=== PATIENT | male | born 2000 ===

== ENCOUNTER 2018-11-19 09:08 | Emergency (ER) | payer SELFPAY ==
[~2018-11-19] VITALS: Ht 172.7 cm; Wt 90.7 kg
[~2018-11-19 09:08] MED LIST: PRD20T PO
--- OUTSIDE RECORDS SUMMARY | 2018-11-19 09:57 | XMS REPORT | Continuity of Care Document ---
Author Author [facility] Organization [facility] Address Unknown Phone Unavailable Allergies Active Description Code Type Severity Reaction Onset Reported/Identified Relationship to Patient Clinical Status Yes No Known Drug Allergies [id number] Drug Allergy Unknown N/A 09/01/2015 Medications There is no data. Problems Date Dx Coded Attending Type Code Diagnosis Diagnosed By 07/29/2013 RAJOTTE TOOL CRIB CLERK, MIKEY A V05.3 HEP B (PED/ADOL 3 DOSE) DX 07/29/2013 RAJOTTE TOOL CRIB CLERK, MIKEY A V05.4 VARICELLA DX 07/29/2013 RAJOTTE TOOL CRIB CLERK, MIKEY A V06.1 TDAP DX 07/29/2013 RAJOTTE TOOL CRIB CLERK, MIKEY A V06.4 MMR DX 07/29/2013 RAJOTTE TOOL CRIB CLERK, MIKEY A V05.3 HEP B (PED/ADOL 3 DOSE) DX 07/29/2013 RAJOTTE TOOL CRIB CLERK, MIKEY A V05.4 VARICELLA DX 07/29/2013 RAJOTTE TOOL CRIB CLERK, MIKEY A V06.1 TDAP DX 07/29/2013 RAJOTTE TOOL CRIB CLERK, MIKEY A V06.4 MMR DX 07/29/2013 RAJOTTE TOOL CRIB CLERK, MIKEY A V05.3 HEP B (PED/ADOL 3 DOSE) DX 07/29/2013 RAJOTTE TOOL CRIB CLERK, MIKEY A V05.4 VARICELLA DX 07/29/2013 RAJOTTE TOOL CRIB CLERK, MIKEY A V06.1 TDAP DX 07/29/2013 RAJOTTE TOOL CRIB CLERK, MIKEY A V06.4 MMR DX 07/29/2013 RAJOTTE TOOL CRIB CLERK, MIKEY A V05.3 HEP B (PED/ADOL 3 DOSE) DX 07/29/2013 RAJOTTE TOOL CRIB CLERK, MIKEY A V05.4 VARICELLA DX 07/29/2013 RAJOTTE TOOL CRIB CLERK, MIKEY A V06.1 TDAP DX 07/29/2013 RAJOTTE TOOL CRIB CLERK, MIKEY A V06.4 MMR DX 05/10/2014 ZAYRA ROQUE MIKEY Mariee V70.3 SPORTS PHYSICAL 05/10/2014 DANIEL IVERSON APRNKETTY Mariee V70.3 SPORTS PHYSICAL 07/28/2014 DANIEL IVERSON APRNKETTY Mariee V03.89 MENINGOCOCCAL DX 09/05/2015 ALEXI CAMBPELL APRN Ot L50.9 Procedures Code [place] [address] VISUAL ACUITY SCREEN 05/10/2014 Results There is no data. Encounters ACCT No. Visit Date/Time Discharge Status Pt. Type Provider Facility Loc./Unit Complaint [id number] 09/01/2015 17:59:00 09/01/2015 18:54:00 DIS Emergency ALEXI CAMPBELL APRN [facility] [id number] 07/28/2014 14:07:00 07/28/2014 23:59:59 CLS Outpatient JOSEJAYLENEdyta MIKEY ROQUE [id number] 05/10/2014 13:00:00 05/10/2014 23:59:59 CLS Outpatient MIKEY IVERSON APRN [id number] 12/23/2013 13:45:00 12/23/2013 23:59:59 CLS Outpatient MIKEY IVERSON APRN [id number] 07/29/2013 09:46:00 07/29/2013 23:59:59 CLS Outpatient MIKEY IVERSON APRN
--- NOTE | 2018-11-19 10:01 | ED General ---
General Chief Complaint: Cough/Cold/Flu Symptoms Stated Complaint: N/V;FLU LIKE SYMPTOMS Nursing Triage Note: PT CO OF COLD COUGH AND FLU SX. STARTED YESTERDAY, HAS HAD FEVER UP TO 102. CHILD HAD FLU LAST WEEK Nursing Sepsis Screen: No Definite Risk Source of Information: Patient Exam Limitations: No Limitations (ATIF TERESA STUDENT) History of Present Illness Date Seen by Provider: Nov 19, 2018 Time Seen by Provider: 09:20 Initial Comments Mr Jernigan is a 18 year old male presenting to the ED with 24 hours of nausea, vomiting, fever, and chills. Yesterday at approximately noon he began experiencing weakness, fatigue, headache, muscle aches and chills. He measured his temperature at 102 degrees. As the day progressed he began to feel nauseous and vomited. Over the course of the night he vomited approximately eight times. He also endorses a cough producing yellow sputum, sinus pressure, and bilateral ear fullness. He chest pain or pain on inspiration. He states that his child was sick earlier in the week with similar symptoms, nausea, vomiting, and fever. Timing/Duration: 24 Hours Associated Systoms: Cough, Fever/Chills, Headaches, Loss of Appetite, Malaise, Nausea/Vomiting, Weakness (ATIF TERESA STUDENT) Allergies and Home Medications Allergies Coded Allergies: No Known Drug Allergies (Unverified , 09/01/15) Home Medications Oseltamivir Phosphate 75 Mg Cap, 75 MG PO BID Prescribed by: ADONIS GIRON on 11/19/18 1119 Prednisone 20 Mg Tab, 40 MG PO ONCE Prescribed by: ALEXI CAMPBELL on 09/01/15 1822 Patient Home Medication List Home Medication List Reviewed: Yes (ATIF TERESA MED STUDENT) Review of Systems Review of Systems Constitutional: chills, diaphoresis, fever, malaise, weakness EENTM: ear pain Respiratory: cough, phlegm Cardiovascular: no symptoms reported Gastrointestinal: No abdominal pain, No constipation, No diarrhea Genitourinary: no symptoms reported Musculoskeletal: muscle pain Skin: no symptoms reported Psychiatric/Neurological: Headache, Weakness Hematologic/Lymphatic: No Symptoms Reported Immunological/Allergic: no symptoms reported (ATIF TERESA MED STUDENT) Past Wqncqag-Uxwlmd-Oyuytt Hx Patient Social History Alcohol Use: Denies Use Recreational Drug Use: Yes (POT) Smoking Status: Never a Smoker Recent Foreign Travel: No Contact w/Someone Who Travel: No Recent Infectious Disease Expo: No Recent Hopitalizations: No (ATIF TERESA MED STUDENT) Immunizations Up To Date Tetanus Booster (TDap): Less than 5yrs PED Vaccines UTD: Yes (ATIF TERESA MED STUDENT) Seasonal Allergies Seasonal Allergies: No (ATIF TERESA MED STUDENT) Past Medical History Surgeries: No Respiratory: No Cardiac: No Neurological: No Reproductive Disorders: No Sexually Transmitted Disease: No Gastrointestinal: No Musculoskeletal: No Endocrine: No Cancer: No Psychosocial: No Integumentary: No Blood Disorders: No Adverse Reaction/Blood Tranf: No (ATIF TERESA MED STUDENT) Physical Exam Vital Signs Vital Signs - First Documented 11/19/18 09:23 Temp 99.5 Pulse 79 Resp 14 B/P (MAP) 138/90 (106) Pulse Ox 97 (ADONIS NOLAN MD) Vital Signs Capillary Refill : Less Than 3 Seconds (ATIF TERESA MED STUDENT) Height, Weight, BMI Height: 5'8.00" Weight: 200lbs. oz. 90.570088gl; BMI Method:Stated General Appearance: No Apparent Distress HEENT: TMs Normal, Moist Mucous Membranes, Pharyngeal Erythema Respiratory: Lungs Clear, Normal Breath Sounds, No Respiratory Distress Cardiovascular: Regular Rate, Rhythm, No Gallop, No Murmur Gastrointestinal: No Pulsatile Mass, Non Tender, Soft Rectal: Deferred Neurologic/Psychiatric: Alert, Oriented x3 (ATIF TERESA MED STUDENT) Progress/Results/Core Measures Suspected Sepsis Recent Fever Within 48 Hours: Yes Infection Criteria Present: None New/Unexplained Altered Menta: No Sepsis Screen: No Definite Risk SIRS Temperature:99.5 Pulse: 79 Respiratory Rate: 14 Blood Pressure 138 /90 Mean: 106 (ATIF TERESA MED STUDENT) Results/Orders Micro Results Microbiology 11/19/18 Influenza Types A,B Antigen (GUILLE) - Final, Complete (ADONIS NOLAN MD) My Orders Orders - ADONIS NOLAN MD Influenza A And B Antigens (11/19/18 09:20) (ADONIS NOLAN MD) Vital Signs/I&O 11/19/18 11/19/18 09:23 11:28 Temp 99.5 99.5 Pulse 79 79 Resp 14 14 B/P (MAP) 138/90 (106) 138/90 (106) Pulse Ox 97 97 (ADONIS NOLAN MD) Vital Signs/I&O Capillary Refill : Less Than 3 Seconds (ATIF TERESA MED STUDENT) Blood Pressure Mean: 106 Progress Note : Progress Note Patient was seen and examined by me personally along with Atif Teresa, MS4. I agree with his history, exam, assessment, and plan. Patient was prescribed Tamiflu and given a note for work. Vital signs were stable and unremarkable. My exam as follows: Gen.: Alert, oriented, mildly ill-appearing HEENT: Normocephalic and atraumatic, mucous membranes moist, tympanic membranes clear Chest: Clear to auscultation bilaterally with normal effort Heart: Regular rate and rhythm without murmur Abdomen: Soft, nontender Extremities: Normal to inspection with no edema Neuro/psych: Alert, oriented, no focal deficits Skin: Warm and dry (ADONIS ONLAN MD) Departure Impression Primary Impression: Influenza A Disposition: 01 HOME, SELF-CARE Condition: Stable Departure-Patient Inst. Decision time for Depature: 11:16 (ADONIS NOLAN MD) Referrals: NO,LOCAL PHYSICIAN (PCP/Family) Primary Care Physician Patient Instructions: Flu Add. Discharge Instructions: Drink plenty of clear liquids. For pain or fever you may take ibuprofen up to 600 mg every 6 hours and/or Tylenol (acetaminophen) up to 1000 mg every 6 hours. You may return to work 7 days after you're symptoms started. See work note. Return to care if you have worsening problems. If you start Tamiflu, complete the entire 10 doses even if you're feeling better. All discharge instructions reviewed with patient and/or family. Voiced understanding. Scripts Oseltamivir Phosphate (Tamiflu) 75 Mg Cap 75 MG PO BID, #10 CAP Prov: ADONIS NOLAN MD 11/19/18 Work/School Note: Work Release Form Date Seen in the Emergency Department: Nov 19, 2018 Return to Work: Nov 24, 2018 Restrictions: Return-No Fever (24hrs) ATIF TERESA MED STUDENT Nov 19, 2018 10:01 ADONIS NOLAN MD Nov 19, 2018 11:20
[2018-11-19] MEDS ORDERED: OSLT75C PO (11:19)
[2018-11-19 11:28] VITALS: BP 138/90
== END 2018-11-19 11:28 | disposition home or self-care (01) ==
LOC: EDUNIT# 09:08 → ER 09:09
DX: J10.1 Influenza due to other identified influenza virus with other respiratory manifestations (principal); F12.10 Cannabis abuse, uncomplicated; Z79.52 Long term (current) use of systemic steroids
CPT/HCPCS: 87804

== ENCOUNTER 2022-09-17 07:46 | Emergency (ER) | payer SELFPAY ==
[~2022-09-17] VITALS: Ht 172 cm; Wt 225.0 kg
[~2022-09-17 07:46] MED LIST changes: +OSLT75C PO
--- NOTE | 2022-09-17 08:06 | ED Headache ---
General Chief Complaint: Head/Cervical Problems Stated Complaint: HEAD ACHE Source: patient, family Exam Limitations: no limitations History of Present Illness Date Seen by Provider: Sep 17, 2022 Time Seen by Provider: 07:53 Initial Comments 22-year-old male who is otherwise healthy presents the emergency department today for headache. He states symptoms started a couple days ago, got better and then started again last night. He describes a dull throbbing sensation in his bilateral occipital region with radiation down into his neck. He denies any fevers or chills. He has had a mild dry cough. He tells me about a month ago he had the flu and seemingly had recovered. No meningeal symptoms. Pain is worse with movement. No known new activities or injury. No history of migraine or other headaches Allergies and Home Medications Allergies Coded Allergies: No Known Drug Allergies (Unverified , 09/01/15) Patient Home Medication List Home Medication List Reviewed: Yes Oseltamivir Phosphate (Tamiflu) 75 Mg Cap, 75 MG PO BID Prescribed by: ADONIS GIRON on 11/19/18 1119 Prednisone (Prednisone) 20 Mg Tab, 40 MG PO ONCE Prescribed by: ALEXI CAMPBELL on 09/01/15 1822 Review of Systems Review of Systems Constitutional: no symptoms reported Eyes: No Symptoms Reported Ears, Nose, Mouth, Throat: no symptoms reported Respiratory: cough Cardiovascular: no symptoms reported Gastrointestinal: no symptoms reported Genitourinary: no symptoms reported Musculoskeletal: no symptoms reported Skin: no symptoms reported Psychiatric/Neurological: No Symptoms Reported, Headache Past Fvhigfw-Txvkfr-Siaors Hx Patient Social History Tobacco Use?: No Use of E-Cig and/or Vaping dev: No Substance use?: No Alcohol Use?: No Immunizations Up To Date Tetanus Booster (TDap): Less than 5yrs PED Vaccines UTD: Yes Seasonal Allergies Seasonal Allergies: No Past Medical History Surgeries: No Respiratory: No Cardiac: No Neurological: No Reproductive Disorders: No Sexually Transmitted Disease: No Gastrointestinal: No Musculoskeletal: No Endocrine: No Cancer: No Psychosocial: No Integumentary: No Blood Disorders: No Adverse Reaction/Blood Tranf: No Family Medical History Reviewed Nursing Family Hx No Pertinent Family Hx Physical Exam Vital Signs Vital Signs - First Documented 09/17/22 07:53 Temp 35.8 Pulse 60 Resp 18 B/P (MAP) 149/115 (126) Pulse Ox 98 O2 Delivery Room Air Capillary Refill : Height, Weight, BMI Height: 5'8.00" Weight: 200lbs. oz. 90.061380md; BMI Method:Stated General Appearance: WD/WN, no apparent distress HEENT: normal ENT inspection, pharynx normal Neck: non-tender, full range of motion, supple, normal inspection, other (Unable to reproduce tenderness on exam. No meningismus.) Cardiovascular: regular rate, rhythm, no edema, no gallop, no JVD, no murmur Respiratory: chest non-tender, lungs clear, normal breath sounds, no respiratory distress, no accessory muscle use Gastrointestinal: normal bowel sounds, non tender, soft, no organomegaly Extremities: normal range of motion, non-tender, normal inspection, no pedal edema, no calf tenderness, normal capillary refill Psychiatric: alert, oriented x 3 Crainal Nerves: normal hearing, normal speech, PERRL Coordination/Gait: normal finger to nose Motor/Sensory: no motor deficit, no sensory deficit Skin: normal color, warm/dry Lymphatic: no adenopathy Progress/Results/Core Measures Results/Orders Lab Results Laboratory Tests Test 09/17/22 08:09 Range/Units White Blood Count 9.8 4.3-11.0 10^3/uL Red Blood Count 5.76 H 4.30-5.52 10^6/uL Hemoglobin 16.8 13.3-17.7 g/dL Hematocrit 49 40-54 % Mean Corpuscular Volume 85 80-99 fL Mean Corpuscular Hemoglobin 29 25-34 pg Mean Corpuscular Hemoglobin Concent 34 32-36 g/dL Red Cell Distribution Width 12.6 10.0-14.5 % Platelet Count 246 130-400 10^3/uL Mean Platelet Volume 9.8 9.0-12.2 fL Immature Granulocyte % (Auto) 1 % Neutrophils (%) (Auto) 66 42-75 % Lymphocytes (%) (Auto) 24 12-44 % Monocytes (%) (Auto) 7 0-12 % Eosinophils (%) (Auto) 1 0-10 % Basophils (%) (Auto) 0 0-10 % Neutrophils # (Auto) 6.5 1.8-7.8 10^3/uL Lymphocytes # (Auto) 2.4 1.0-4.0 10^3/uL Monocytes # (Auto) 0.7 0.0-1.0 10^3/uL Eosinophils # (Auto) 0.1 0.0-0.3 10^3/uL Basophils # (Auto) 0.0 0.0-0.1 10^3/uL Immature Granulocyte # (Auto) 0.1 0.0-0.1 10^3/uL Sodium Level 140 135-145 MMOL/L Potassium Level 4.1 3.6-5.0 MMOL/L Chloride Level 107 98-107 MMOL/L Carbon Dioxide Level 20 L 21-32 MMOL/L Anion Gap 13 5-14 MMOL/L Blood Urea Nitrogen 13 7-18 MG/DL Creatinine 1.00 0.60-1.30 MG/DL Estimat Glomerular Filtration Rate 108 BUN/Creatinine Ratio 13 Glucose Level 116 H 70-105 MG/DL Calcium Level 9.8 8.5-10.1 MG/DL Corrected Calcium 8.5-10.1 MG/DL Total Bilirubin 0.3 0.1-1.0 MG/DL Aspartate Amino Transf (AST/SGOT) 43 H 5-34 U/L Alanine Aminotransferase (ALT/SGPT) 135 H 0-55 U/L Alkaline Phosphatase 66 40-136 U/L Total Protein 7.8 6.4-8.2 GM/DL Albumin 4.6 H 3.2-4.5 GM/DL My Orders Orders - ANA TERRELL DO Cbc With Automated Diff (09/17/22 08:01) Comprehensive Metabolic Panel (09/17/22 08:01) Ketorolac Injection (Toradol Injection) (09/17/22 08:15) Diphenhydramine Injection (Benadryl Inje (09/17/22 08:15) Medications Given in ED Current Medications Medications Dose Ordered Sig/Gomez Route Start Time Stop Time Status Last Admin Dose Admin Diphenhydramine HCl 25 mg ONCE ONCE IM 09/17/22 08:15 09/17/22 08:16 DC 09/17/22 08:15 25 MG Ketorolac Tromethamine 15 mg ONCE ONCE IVP 09/17/22 08:15 09/17/22 08:16 DC 09/17/22 08:14 15 MG Vital Signs/I&O 09/17/22 09/17/22 07:53 08:14 Temp 35.8 35.8 Pulse 60 Resp 18 B/P (MAP) 149/115 (126) Pulse Ox 98 O2 Delivery Room Air Departure Communication (Admissions) Patient is hemodynamically stable, nontoxic. No red flag symptoms when he comes for his headache. No meningismus. He is afebrile with normal white blood cell count. I think meningitis is extremely unlikely at this time. No recent tick bites. No indication of emergent medical condition at this time. Treated conservatively for his headache and discharged in stable condition. Impression Primary Impression: Headache Qualified Codes: R51.9 - Headache, unspecified Disposition: HOME, SELF-CARE Condition: Stable Departure-Patient Inst. Referrals: NO,LOCAL PHYSICIAN (PCP/Family) Primary Care Physician Patient Instructions: Headache, Adult Add. Discharge Instructions: Drink plenty of fluids at home, rest. Alternate ibuprofen and Tylenol as needed for headache. Return to the emergency department for any severe concerns. Follow-up with your primary doctor for any nonemergent needs All discharge instructions reviewed with patient and/or family. Voiced understanding. ANA TERRELL DO Sep 17, 2022 08:06
[2022-09-17 08:14] LABS: BASOPHILS % (AUTO) 0 % (0-10); EOSINOPHILS # (AUTO) 0.1 10^3/uL (0.0-0.3); EOSINOPHILS % (AUTO) 1 % (0-10); HEMATOCRIT 49 % (40-54); HEMOGLOBIN 16.8 g/dL (13.3-17.7); LYMPHOCYTES # (AUTO) 2.4 10^3/uL (1.0-4.0); LYMPHOCYTES % (AUTO) 24 % (12-44); MEAN CORPUSCULAR HEMOGLOBIN 29 pg (25-34); MEAN CORPUSCULAR HGB CONC 34 g/dL (32-36); MEAN CORPUSCULAR VOLUME 85 fL (80-99); MEAN PLATELET VOLUME 9.8 fL (9.0-12.2); MONOCYTES # (AUTO) 0.7 10^3/uL (0.0-1.0); MONOCYTES % (AUTO) 7 % (0-12); NEUTROPHILS # (AUTO) 6.5 10^3/uL (1.8-7.8); NEUTROPHILS % (AUTO) 66 % (42-75); PLATELET COUNT 246 10^3/uL (130-400); WHITE BLOOD COUNT 9.8 10^3/uL (4.3-11.0)
[2022-09-17] MEDS ORDERED: diphenhydrAMINE 50 MG/ML INJ (BENADRYL) IM ONE (08:15)
[2022-09-17] MEDS ORDERED: KETOROLAC 15 MG/ML VIAL IVP ONE (08:15)
[2022-09-17 08:26] LABS: ALBUMIN 4.6 GM/DL (3.2-4.5); CHLORIDE 107 MMOL/L (98-107); POTASSIUM 4.1 MMOL/L (3.6-5.0); SODIUM 140 MMOL/L (135-145)
[2022-09-17 08:27] LABS: CALCIUM 9.8 MG/DL (8.5-10.1)
[2022-09-17 08:28] LABS: GLUCOSE 116 MG/DL (70-105); TOTAL PROTEIN 7.8 GM/DL (6.4-8.2)
[2022-09-17 08:30] LABS: BILIRUBIN,TOTAL 0.3 MG/DL (0.1-1.0); CARBON DIOXIDE 20 MMOL/L (21-32)
[2022-09-17 08:32] LABS: ALKALINE PHOSPHATASE 66 U/L (40-136); GFR ESTIMATED 108
[2022-09-17 08:33] LABS: BUN/CREATININE RATIO 13
[2022-09-17 08:35] LABS: ALANINE AMINOTRANSFERASE 135 U/L (0-55)
[2022-09-17] MEDS ORDERED: KETO10TA PO (08:46)
[2022-09-17 08:51] VITALS: BP 125/78
== END 2022-09-17 08:51 | disposition home or self-care (01) ==
LOC: EDUNIT# 07:46 → ER 07:49
DX: R51.9 Headache, unspecified (principal); Z28.310 Unvaccinated for COVID-19
CPT/HCPCS: 36415; 80053; 85025; 99281